=== PATIENT | male | born 1995 | race Two or more races ===

== ENCOUNTER → 2022-06-05 | Emergency (ER) | payer OTHER ==
[~2022-06-05] VITALS: Ht 165.1 cm; Wt 59.0 kg
[~2022-06-05] MED LIST: RISPERDAL1 MG
== END | disposition home or self-care (01) ==
LOC: ER 10:56
DX: S60.222A Contusion of left hand, initial encounter (principal); X58.XXXA Exposure to other specified factors, initial encounter; Y93.9 Activity, unspecified; Y92.89 Other specified places as the place of occurrence of the external cause; Y99.9 Unspecified external cause status; Z91.013 Allergy to seafood